=== PATIENT | female | born 1975 | race Caucasian/White ===

== ENCOUNTER 2016-06-07 10:28 | Outpatient (CLI) | payer MEDICAID | END 2016-06-07 10:29 | disposition home or self-care (01) | LOC: NC 10:28 | PROVIDERS: ATTEND Obstetrics & Gynecology | DX: O24.410 Gestational diabetes mellitus in pregnancy, diet controlled (principal); Z71.3 Dietary counseling and surveillance ==

== ENCOUNTER 2016-07-13 09:15 | Inpatient (IN) | payer MEDICAID ==
--- NOTE | 2016-07-11 13:52 | HP ---
Urszula Muse : 1975 HISTORY OF PRESENT ILLNESS: Urszula Muse is a 40-year-old female admitted for a repeat section at 39 weeks. Risks, reasons, complications, living will, alternatives discussed all in laypersons terms, all questions answered. OB HISTORY: 3, para 2-0-0-2, two previous sections of 9 pound 3 ounce and a 9 pound 6 ounce babies, first one following a unsuccessful induction of labor. CHANGE DIRECTOR HISTORY: Menarche 11 x30 x3 days. PAST MEDICAL HISTORY: Positive for gestational diabetes and penicillin allergy. SOCIAL HISTORY: Nonsmoker, nondrinker. PAST SURGICAL HISTORY: section x2 and a cholecystectomy. FAMILY HISTORY: Negative. REVIEW OF SYSTEMS: Noncontributory. On the last visit the baby was moving. PHYSICAL EXAMINATION: GENERAL: Is a obese female in no acute distress. HEENT: Normal. NECK: Supple. Thyroid not palpable. BREAST: Soft, no masses. HEART: Regular sinus rhythm. No murmurs. LUNGS: Clear. ABDOMEN: Pfannenstiel incision. heart was present. PELVIC: On last pelvic exam the cervix was closed, uneffaced, in vertex presentation, -4 station, and she measured 40 cm on her abdominal exam. LABORATORY: Her glucose levels have been in the normal range: 75 to 96. She did have polyhydramnios noted on ultrasound, however, her last ultrasound showed polyhydramnios had resolved. IMPRESSION: 1. Gestational diabetes controlled on diet. 2. Penicillin allergy. 3. Term . 4. Previous section. PLAN: A repeat lower segment section. Risks, reasons, complications, living will, alternatives discussed all in laypersons terms and all questions answered. JOB: [id number]
[~2016-07-13 09:15] MED LIST: CEFAZOLIN SODIUM 2 GRAM DUPLEX 2 G in Premix (D5W) 50 ml 1 EACH IV PRN; LACTATED RINGERS 1,000 ML IV SCH
[2016-07-13] MEDS ORDERED: CEFAZOLIN SODIUM 2 GRAM DUPLEX 50 ML IV ONE (09:25)
[2016-07-13] MEDS ORDERED: IV START KIT ONE (09:25)
[2016-07-13] MEDS ORDERED: LACTATED RINGERS 1,000 ML ONE (09:25)
[2016-07-13 10:15] VITALS: BMI 41.8
[2016-07-13 10:33] LABS: HEMATOCRIT 41.5 % (37.0-47.0); HEMOGLOBIN 13.7 gm/l (12.0-16.0); MEAN CELL VOLUME 89.1 fl (81.0-99.0); MEAN CORPUSCULAR HEMOGLOBIN 29.4 pg (27.0-31.0); RED CELL DISTRIBUTION WIDTH 14.2 % (11.5-14.5)
[2016-07-13] MEDS ORDERED: MORPHINE SULFATE (DURAMORPH) 1 MG/ML 10ML AMP ONE (11:23)
[2016-07-13] MEDS ORDERED: FLU VACC 2016-17 (36MO-64Y)/PF 60 MCG/0.5 ML SYRINGE IM V ONE (12:11)
[2016-07-13] MEDS ORDERED: PHENYLEPHRINE 10 MG/1 ML (1%) VIAL ONE (12:14)
[2016-07-13] MEDS ORDERED: SPINAL PROCEDURAL TRAY 1 EACH ONE (12:14)
[2016-07-13] MEDS ORDERED: BUPIVACAINE 0.75% SPINAL AMPUL 2 ML ONE (12:14)
[2016-07-13] MEDS ORDERED: OXYTOCIN 10 UNITS/ML VIAL ONE (12:14)
[2016-07-13] MEDS ORDERED: LANOLIN 50 APPLIC/7G TUBE TP PRN (12:38)
[2016-07-13] MEDS ORDERED: DIPHENHYDRAMINE HCL 25 MG CAPSULE PO PRN (12:38)
[2016-07-13] MEDS ORDERED: DIPHENHYDRAMINE HCL 50 MG/1 ML VIAL IV PRN ×2 (12:38→12:40)
[2016-07-13] MEDS ORDERED: ONDANSETRON 4 MG/2ML 2 ML VIAL IV PRN ×2 (12:38→12:40)
[2016-07-13] MEDS ORDERED: NALOXONE HCL 0.4 MG/ML VIAL IV PRN (12:40)
[2016-07-13] MEDS ORDERED: EPHEDRINE SULFATE 50 MG/ML 1ML VIAL IV PRN (12:40)
[2016-07-13] MEDS ORDERED: MORPHINE SULFATE 4 MG/ML SYRINGE IV PRN (12:40)
[2016-07-13] MEDS ORDERED: PROMETHAZINE HCL 12.5 MG in SODIUM CHLORIDE 0.9% 50 ML IV PRN (12:40)
[2016-07-13] MEDS ORDERED: NALBUPHINE HCL 20 MG/ML AMP IV PRN (12:40)
[2016-07-13] MEDS ORDERED: PROMETHAZINE HCL 25 MG/ML VIAL IM PRN (12:40)
[2016-07-13] MEDS ORDERED: MORPHINE SULFATE 10 MG/ML SYRINGE IV PRN (12:40)
--- NOTE | 2016-07-13 12:51 | PCMBPN ---
Brief Post Op Note: Date of Procedure: 07/13/16 Start Time: Preoperative Diagnosis: 1. intrauterine at 39 weeks, gestational diabetes, obesity, multiparity Postoperative Diagnosis: 1. Same and loose nuchal cord x 1 Procedure: repeat lower segment cesarian section, bilateral tubal ligation Surgeon: Eleazar Villela Assist: dr nieves Anesthesia: spinal, ms mireya Findings: term sized uterus, both ovaries and tubes normal, clear amniotic fluid , live baby boy, 9/9, wt 8lbs 15 oz, rot position, loose nuchal cord x1 Condition: stable Complications: none IV Fluids: mLs of LR Urine Output: mLs Estimated Blood Loss: 500cc mLs Tourniquet Time: N/A Specimens: portion of right and left fallopian tube Implants: Drains: N/A closure: rafael patient tolerated procedure well and was returned to recovery room in stable condition with gill draining clear yellow urine.
[2016-07-13] MEDS ORDERED: MORPHINE SULFATE 2 MG/ML SYRINGE IV PRN (13:08)
[2016-07-13] MEDS: LACTATED RINGERS 1,000 ML IV SCH ×2 (16:17→21:22)
--- NOTE | 2016-07-13 18:18 | OP ---
MARILYNN MARTINS [id number] DATE OF : 1975 NAME OF OPERATION: REPEAT LOWER SEGMENT CAESARIAN SECTION AND BILATERAL TUBAL LIGATION BY ISMAEL TECHNIQUE. PREOPERATIVE DIAGNOSES: 1. Intrauterine at 39 weeks. 2. Gestational diabetes. 3. Obesity. 4. Multiparity. POSTOPERATIVE DIAGNOSIS: 1. Intrauterine at 39 weeks. 2. Gestational diabetes. 3. Obesity. 4. Multiparity. 5. Loose nuchal cord x 1. GREETER GUEST SERVICES: Dr. Eleazar Villela CONVERTER OPERATOR: Dr. Krishna Mejia ANESTHESIA: Jesenia Cardona CRNA, spinal anesthesia. DESCRIPTION OF PROCEDURE: The patient received spinal anesthesia, she was in the supine position. A Armstrong catheter was inserted and draining clear yellow urine. The abdomen was prepared with ChloraPrep and draped in the usual manner after drying. After a time-out was performed, the skin was tested and found to be with complete anesthesia and then a knife was used to make a Pfannenstiel incision through the previous scar. The incision was then carried-down through the subcutaneous tissue to the rectus abdominis fascia which was nicked with the knife and carried laterally with Lalan scissors. All bleeding points were clamped with Esme's and Bovied. The superior portion of the fascia was grasped with Lakeisha clamps, the median raphe divided with a Allan scissors and then a knife, and a similar procedure was performed on the lower end of the incision. The muscle was split in midportion. The peritoneum was identified, entered bluntly with a finger and then stretched laterally. An Magen retractor was then inserted. Findings included a term-sized uterus. Both ovaries and tubes appeared normal. The knife was then used to make a lower uterine incision which was stretched laterally. This was done well above the bladder reflection. Then the uterine incision was stretched laterally. There was clear amniotic fluid noted. A live baby boy was delivered by vacuum extraction. The vacuum was placed in the midsagittal suture line 1.5 cm in front of the posterior fontanelle, delivery from the ROT position. He was delivered uneventfully. There was a loose nuchal cord noted, which was reduced after delivery of the head, shoulders and body followed uneventfully. The baby had an of 9 and 9 at one and five minutes respectively, and the weight was 8 pounds and 15 ounces. With the baby out, the cord was clamped twice with Esme clamps, divided in between with the bandage scissors, and the baby was given to the nursing team for care. Cord blood was obtained and then the placenta was delivered manually and intact. The uterus was wiped clean of membranes and blood clots and then ring forceps were placed at the 3, 6, 9 and 12 o'clock positions of the uterine incision and the uterus was closed in two layers with #1 Chromic continuous interlocking sutures, the second layer imbricating the first. One additional bleeding point on the left angle was individually sutured with the same material, resulting in complete hemostasis. Now with complete hemostasis, the bilateral tubal ligation was performed. First the left Fallopian tube was identified down to its fimbriated portion and grasped in the midportion with a Bisbee clamp. A suture of 3-0 plain was placed through the mesosalpinx and around the tube, creating a knuckle of tube, and then a free-tie of the same material was placed beneath the first, and then the knuckle of tube was dissected away. The edges were Bovied, resulting in complete hemostasis. This was repeated on the opposite tube, making sure to identify down to its fimbriated portion. Now with complete hemostasis, the Magen retractor was removed. With complete hemostasis and sponge and instrument count reported as correct, the rectus abdominis muscle was reapproximated with two individual sutures of #1 Chromic material and then the fascia was closed in right and left halves with #1 Vicryl material, locking the first stitch, and that was done in a continuous manner. Subcutaneous bleeding points were Bovied prior to closure of skin. The skin was closed with rafael. Estimated blood loss was 500 mL. The patient tolerated the procedure well and was returned to the recovery room in stable condition, with the Armstrong draining clear yellow urine. She did receive two grams of Ancef prior to the incision.
[2016-07-13] MEDS: KETOROLAC TROMETHAMINE 30 MG/ML 1 ML VIAL IV SCH ×2 (19:36→20:17)
[2016-07-13] MEDS: DOCUSATE SODIUM 100 MG CAPSULE PO SCH (20:17)
[2016-07-13] MEDS: OXYCODONE/ACETAMINOPHEN 5/325 MG TABLET PO PRN (21:30)
[2016-07-14] MEDS: KETOROLAC TROMETHAMINE 30 MG/ML 1 ML VIAL IV SCH ×2 (02:33→20:48)
[2016-07-14 06:27] LABS: HEMATOCRIT 35.7 % (37.0-47.0); HEMOGLOBIN 11.7 gm/l (12.0-16.0)
--- NOTE | 2016-07-14 06:34 | PDOC44 ---
- Subjective Day: 1 (offers no complaints) Reports Pain Tolerable, Reports , Reports Lochia Moderate, Reports Tolerating Clear Liquids, Reports Tolerating Regular Diet, Denies Flatus, Denies Nausea, Denies Vomiting, Denies Fever - Objective Temp Pulse Resp BP Pulse Ox 97.9 F 80 18 92/56 100 07/14/16 04:27 07/14/16 04:27 07/14/16 04:27 07/14/16 04:27 07/13/16 16:28 Lab Results 07/13/16 09:45 WBC 7.6 RBC 4.66 Hgb 13.7 Hct 41.5 Plt Count 145 Current Medications Generic Name Dose Route Start Last Admin Trade Name Freq PRN Reason Stop Dose Admin Diphenhydramine HCl 25 - 50 mg 07/13/16 12:38 Benadryl PO Q6H PRN Itching (Mild/Moderate) Diphenhydramine HCl 25 - 50 mg 07/13/16 12:38 07/13/16 21:16 Benadryl IV 25 mg Q6H PRN Administration Itching (Severe) Diphenhydramine HCl 25 - 50 mg 07/13/16 12:40 Benadryl IV 07/14/16 12:39 Q4H PRN Itching Docusate Sodium 100 mg 07/13/16 21:00 07/13/16 20:17 Colace PO 100 mg BID REX Administration Emollient Ointment 1 applic 07/13/16 12:38 [id number] TP PRN PRN sore nipples Ephedrine Sulfate 5 - 10 mg 07/13/16 12:40 Ephedrine Sulfate IV 07/14/16 12:39 Q5M PRN Lactated Ringer's 1,000 mls @ 125 mls/hr 07/13/16 12:45 07/13/16 21:22 Lactated Ringers IV 125 mls/hr .Q8H REX Administration Promethazine HCl 12.5 mg/ 50.5 mls @ 202 mls/hr 07/13/16 12:40 Sodium Chloride IV Q4H PRN Nausea/Vomiting Ibuprofen 800 mg 07/13/16 12:38 Motrin PO Q8H PRN Pain Ketorolac Tromethamine 30 mg 07/13/16 12:40 07/14/16 02:33 Toradol IV 07/14/16 12:39 30 mg Q6H REX Administration Morphine Sulfate 1 - 5 mg 07/13/16 13:08 Morphine Sulfate IV 07/14/16 13:08 Q1H PRN Pain (Breakthrough) Morphine Sulfate 1 - 5 mg 07/13/16 12:40 Morphine Sulfate IV 07/14/16 12:39 Q1H PRN Pain (Breakthrough) Morphine Sulfate 1 - 5 mg 07/13/16 12:40 Morphine Sulfate IV 07/14/16 12:39 Q1H PRN Pain (Breakthrough) Multivi/Iron Carb/Fe Sulf/FA/Prenat 1 tab 07/14/16 09:00 Plus PO DAILY REX Nalbuphine HCl 1 - 5 mg 07/13/16 12:40 Nubain IV 07/14/16 12:39 Q4H PRN Itching Naloxone HCl 0.2 - 0.4 mg 07/13/16 12:40 Narcan IV 07/14/16 12:39 Q5M PRN Ondansetron HCl 4 mg 07/13/16 12:38 Zofran IV Q6H PRN Nausea/Vomiting Ondansetron HCl 4 mg 07/13/16 12:40 Zofran IV 07/14/16 12:39 Q6H PRN Nausea/Vomiting Oxycodone/Acetaminophen 1 - 2 tab 07/13/16 12:38 Percocet 5/325 PO Q4H PRN Pain (Moderate) Promethazine HCl 6.25 - 12.5 mg 07/13/16 12:40 Phenergan IM 07/14/16 12:39 Q4H PRN Nausea/Vomiting Sodium Chloride 10 ml 07/13/16 12:38 07/14/16 02:33 Normal Saline 10ml Flush IV 30 ml PRN PRN Administration IV Flush Sodium Chloride 10 ml 07/13/16 17:00 07/14/16 04:11 Normal Saline 10ml Flush IV Not Given Q8HR [facility] - Physical Exam General: Afebrile, No Acute Distress Psych/Mental Status: Mood/Affect Appropriate, Judgment/Insight Intact, Bonding Well Lungs: Clear to Auscultation Bilaterally, Normal Air Movement Breast: Soft, Skin intact, Nipples Intact, No Tenderness, No Erythema, No Engorged Fundus: Firm, Midline, Below Umbilicus, Other (nontender) Abdomen: Normal Bowel Sounds, Other (hasn't passed flatus yet or had a bowel movement), No Tenderness, No Distention Genitourinary: Indwelling Urinary Cath Lochia: Moderate Extremities: No Tenderness Wound LOCAL INTERMODAL TRUCK DRIVER: Dressing in Place, Dressing Clean/Dry/Intact Disposition: Stable (discontinue gill)
[2016-07-14] MEDS: PRENATAL VIT/FE FUMARATE/FA 1 TABLET PO SCH (10:17)
[2016-07-14] MEDS: IBUPROFEN 800 MG TABLET PO PRN ×2 (10:17→21:06)
[2016-07-14] MEDS: OXYCODONE/ACETAMINOPHEN 5/325 MG TABLET PO PRN ×3 (10:18→21:00)
[2016-07-14] MEDS: DOCUSATE SODIUM 100 MG CAPSULE PO SCH ×2 (10:18→21:30)
[2016-07-14] MEDS: LACTATED RINGERS 1,000 ML IV SCH ×2 (17:47→20:48)
[2016-07-15] MEDS: OXYCODONE/ACETAMINOPHEN 5/325 MG TABLET PO PRN ×3 (00:47→14:41)
[2016-07-15] MEDS: DOCUSATE SODIUM 100 MG CAPSULE PO SCH ×2 (11:25→20:25)
[2016-07-15] MEDS: IBUPROFEN 800 MG TABLET PO PRN ×2 (11:25→20:26)
[2016-07-15] MEDS: PRENATAL VIT/FE FUMARATE/FA 1 TABLET PO SCH (11:25)
--- NOTE | 2016-07-15 13:42 | PDOC44 ---
- Subjective Day: 2 (gas pains, has not passed flatus yet) Reports Pain Tolerable, Reports , Reports Lochia Light, Reports Tolerating Clear Liquids, Reports Tolerating Regular Diet, Denies Flatus, Denies Nausea, Denies Vomiting, Denies Fever - Objective Temp Pulse Resp BP Pulse Ox 98.5 F 72 16 106/66 100 07/15/16 08:23 07/15/16 08:23 07/15/16 08:23 07/15/16 08:23 07/13/16 16:28 Current Medications Generic Name Dose Route Start Last Admin Trade Name Freq PRN Reason Stop Dose Admin Diphenhydramine HCl 25 - 50 mg 07/13/16 12:38 Benadryl PO Q6H PRN Itching (Mild/Moderate) Diphenhydramine HCl 25 - 50 mg 07/13/16 12:38 07/13/16 21:16 Benadryl IV 25 mg Q6H PRN Administration Itching (Severe) Docusate Sodium 100 mg 07/13/16 21:00 07/15/16 11:25 Colace PO 100 mg BID REX Administration Emollient Ointment 1 applic 07/13/16 12:38 [id number] TP PRN PRN sore nipples Lactated Ringer's 1,000 mls @ 125 mls/hr 07/13/16 12:45 07/14/16 20:48 Lactated Ringers IV Not Given .Q8H REX Promethazine HCl 12.5 mg/ 50.5 mls @ 202 mls/hr 07/13/16 12:40 Sodium Chloride IV Q4H PRN Nausea/Vomiting Ibuprofen 800 mg 07/13/16 12:38 07/15/16 11:25 Motrin PO 800 mg Q8H PRN Administration Pain Multivi/Iron Carb/Fe Sulf/FA/Prenat 1 tab 07/14/16 09:00 07/15/16 11:25 Plus PO 1 tab DAILY REX Administration Ondansetron HCl 4 mg 07/13/16 12:38 Zofran IV Q6H PRN Nausea/Vomiting Oxycodone/Acetaminophen 1 - 2 tab 07/13/16 12:38 07/15/16 11:25 Percocet 5/325 PO 1 tab Q4H PRN Administration Pain (Moderate) Sodium Chloride 10 ml 07/13/16 12:38 07/14/16 02:33 Normal Saline 10ml Flush IV 30 ml PRN PRN Administration IV Flush Sodium Chloride 10 ml 07/13/16 17:00 07/15/16 00:49 Normal Saline 10ml Flush IV 10 ml Q8HR REX Administration - Physical Exam General: Afebrile, No Acute Distress Psych/Mental Status: Mood/Affect Appropriate, Judgment/Insight Intact, Bonding Well Lungs: Clear to Auscultation Bilaterally, Normal Air Movement Breast: Soft, Skin intact, Nipples Intact, No Tenderness, No Erythema, No Engorged Fundus: Firm, Midline, Below Umbilicus, Other (nontender) Abdomen: Normal Bowel Sounds, Other (no flatus passed yet, no bowel movemennt), No Tenderness, No Distention Genitourinary: Other (voiding without difficulty) Lochia: Light Extremities: No Tenderness Wound HEMATOLOGY SPECIALIST: Dressing in Place, Dressing Clean/Dry/Intact, Well Approximated, [place] Intact, No Drainage, No Erythema, No Rash, No Edema - Problems:Assessment/Plan (1) Term delivered Status: Acute (2) Gestational diabetes Status: Acute (3) Obesity Status: Acute Disposition: Stable, Anticipate DC Home Tomorrow
[2016-07-15] MEDS: SIMETHICONE 80 MG TAB.CHEW PO PRN ×2 (14:41→20:26)
[2016-07-15] MEDS: LACTATED RINGERS 1,000 ML IV SCH ×2 (16:08→16:10)
[2016-07-15] MEDS: BISACODYL 5 MG TABLET.EC PO SCH (17:26)
[2016-07-16] MEDS: IBUPROFEN 800 MG TABLET PO PRN (04:32)
[2016-07-16] MEDS: PRENATAL VIT/FE FUMARATE/FA 1 TABLET PO SCH (08:37)
[2016-07-16] MEDS: DOCUSATE SODIUM 100 MG CAPSULE PO SCH (08:37)
[2016-07-16] MEDS: BISACODYL 5 MG TABLET.EC PO SCH (08:38)
[2016-07-16 09:02] VITALS: BP 111/64
[2016-07-16] MEDS ORDERED: FLU VACC 2016-17 (36MO-64Y)/PF 60 MCG/0.5 ML SYRINGE IM V ONE (11:04)
--- NOTE | 2016-07-17 16:23 | SURGPATH ---
[facility], [facility]. [address] [place] [id number] Patient Name: MARILYNN MARTINS MR#: [id number] : 1975 Gender: F Specimen #: [id number] Collected: 07/13/2016 Received: 07/16/2016 Reported: 07/17/2016 Submitting Phys: TIRSO JONES I Copy To Phys: [facility] Clinical History / Pre-Operative Diagnosis: ELECTIVE STERILIZATION Specimen Source / Surgical Procedure Performed: RIGHT FALLOPIAN TUBE SEGMENT (WITH STITCH), LEFT FALLOPIAN TUBE SEGMENT HIGH PRIORITY DIAGNOSIS. REQUIRES CLINICAL ATTENTION Interpretation: FALLOPIAN TUBES, RIGHT AND LEFT, BILATERAL TUBAL LIGATION: - LEFT FALLOPIAN TUBE SEEN IN COMPLETE CROSS SECTION - CROSS SECTION NOT CONFIRMED IN RIGHT FALLOPIAN TUBE (SEE COMMENT) Comment: Complete cross section of the right fallopian tube could not be confirmed. Additional levels as well as reorientation of the tissue in the block failed to yield a complete cross-section. Clinical followup is recommended to ensure sterilization. Electronically Signed Out Ange Sandhu M.D. Gross Description: The specimen is received in a formalin filled container labeled with the patient's name and "right and left fallopian tube segments". Two cylindrical segments of kraus tissue are each 0.6 x 0.3 cm. One segment has an attached suture and is inked black. Totally embedded in one cassette. Radha Zuniga Microscopic Description: Both fallopian tubes are histologically unremarkable. The un-inked left fallopian tube is seen in complete cross section. The inked right fallopian tube is not seen in complete cross section. 1: [id number] Z30.2
--- NOTE | 2016-08-14 11:57 | PDOC39B ---
Hospital Course: ADMIT DATE: 07/13/16 DISCHARGE DATE: 07/16/16 ADMISSION DIAGNOSES: term , desires repeat c/section, desires permanent sterilization PROCEDURES: repeat low transverse c/section and bilateral tubal ligation HISTORY OF PRESENT ILLNESS: 40 year old G3 T2 L2 at 39 weeks 1 days presenting for elective repeat c/s with BTL at term. HOSPITAL COURSE: The patient had a repeat low transverse c/section and bilateral tubal ligation. The procedure was uncomplicated. Baby male, 9/9 apgars, 8lbs 15oz. The pt had uncomplicated postoperative course. By day of discharge the patient is ambulating, eating, voiding, and passing flatus without difficulty. Pain is controlled and lochia is appropriate. She is []. Laboratory Tests 07/13/16 07/13/16 07/14/16 09:45 23:35 06:00 WBC 7.6 RBC 4.66 Hgb 13.7 11.7 L D Hct 41.5 35.7 L MCV 89.1 MCH 29.4 MCHC 33.0 RDW 14.2 Plt Count 145 POC Capillary Glucose 76 Syphilis IgG/IgM Ab Non-reactive Last Vital Signs Temp 97.6 F 07/16/16 08:43 Pulse 72 07/16/16 08:43 Resp 16 07/16/16 08:43 BP 111/64 07/16/16 08:43 Pulse Ox 100 07/13/16 16:28 - Physical Exam Vital Signs: Temp Pulse Resp BP Pulse Ox 97.6 F 72 16 111/64 100 07/16/16 08:43 07/16/16 08:43 07/16/16 08:43 07/16/16 08:43 07/13/16 16:28 - Discharge Plan Disposition: Home Instruction Forms: Section Discharge Instructions Prescriptions: Bisacodyl [Dulcolax] 5 mg PO DAILY PRN #30 tablet.ec PRN Reason: Constipation Ibuprofen [Motrin] 800 mg PO Q6H PRN #30 tablet PRN Reason: Pain Oxycodone HCl/Acetaminophen [PERCOCET 5/325 MG TABLET (SHF)] 1 - 2 tab PO Q4H PRN #40 tab PRN Reason: Pain Simethicone 80 mg PO Q8H #30 tab.chew Follow-Up: Eleazar Villela MD [Staff Physician] - In 2-3 days (Saturday for rafael)
== END 2016-07-16 12:50 | disposition home or self-care (01) | DRG 765 ==
LOC: FBC 09:15
PROVIDERS: ADMIT Obstetrics & Gynecology; ATTEND Obstetrics & Gynecology
PROC: 10D00Z1 Extraction of Products of Conception, Low, Open Approach (ICD-10-PCS; principal; 2016-07-13)
PROC: 0UB70ZZ Excision of Bilateral Fallopian Tubes, Open Approach (ICD-10-PCS; 2016-07-13)
DX: O34.211 Maternal care for low transverse scar from previous cesarean delivery (principal); Z68.41 Body mass index [BMI] 40.0-44.9, adult; Z37.0 Single live birth; N85.8 Other specified noninflammatory disorders of uterus; O99.214 Obesity complicating childbirth; O24.420 Gestational diabetes mellitus in childbirth, diet controlled; O69.81X0 Labor and delivery complicated by cord around neck, without compression, not applicable or unspecified; Z3A.39 39 weeks gestation of pregnancy; Z30.2 Encounter for sterilization; Z88.0 Allergy status to penicillin